=== PATIENT | female | born 1995 | race Caucasian/White ===

== ENCOUNTER → 2020-10-04 15:26 | Outpatient (BNVA) | payer SELFPAY | PROVIDERS: Family Provider Family Medicine; PCP Family Medicine; Visit Provider Family Medicine | DX: N91.2 Amenorrhea, unspecified (principal) | CPT/HCPCS: 81025 ==

== ENCOUNTER → 2020-10-20 13:28 | Outpatient (BNVA) | payer SELFPAY | PROVIDERS: Family Provider Family Medicine; PCP Family Medicine; Visit Provider Nurse Practitioner Women's Health | DX: Z34.01 Encounter for supervision of normal first pregnancy, first trimester (principal) | CPT/HCPCS: 80307; 81000; 84702; 85027; 86592; 86762; 86803; 86850; 86900; 87077; 87086; 87184; 87340; 87806 ==

== ENCOUNTER → 2020-10-21 16:49 | Outpatient (BNVA) | payer SELFPAY | PROVIDERS: Family Provider Family Medicine; PCP Family Medicine; Visit Provider Nurse Practitioner Women's Health | DX: O02.1 Missed abortion (principal); Z3A.08 8 weeks gestation of pregnancy | CPT/HCPCS: 87522 ==